=== PATIENT | male | born 1990 | race Caucasian/White ===

== ENCOUNTER 2016-06-18 10:55 | Emergency (ER) | payer SELFPAY ==
[2016-06-18 11:22] VITALS: TEMP 98.3; O2SAT 99
[2016-06-18] MEDS ORDERED: KETOROLAC TROMETHAMINE INJ 30 MG/ML VIAL IM ONE (12:23)
[2016-06-18] MEDS ORDERED: CYCLOBENZAPRINE HCL 10 MG TAB PO ONE (12:23)
--- NOTE | 2016-06-18 12:26 | ED.PDOC ---
History of Present Illness - General Chief Complaint: Headache Stated Complaint: headache Time Seen by Provider: 06/18/16 11:22 Source: patient Exam Limitations: no limitations - History of Present Illness Initial Comments: Patient complains of a headache for two days. Starts in his neck and radiates to the right side of his face. Worse with movement of the head and right arm, better with rest. No N/V/F. He has a history of migraines but says that he doesn't think this is a migraine because he would be vomiting by now. It also does not feel like his typical migraine. 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 He has had no recent falls or trauma. No paresthesias. No other symptoms. Timing/Duration: other - two days Severity: moderate Improving Factors: rest Worsening Factors: movement Associated Symptoms: denies symptoms Allergies/Adverse Reactions: Allergies NO KNOWN ALLERGY Allergy (Verified 06/18/16 11:22) Home Medications: Ambulatory Orders Insulin NPH Isophane & Reg (Hu [Novolin 70/30 (70-30) 100 Unit/ml] 1 units SC DAILY 10/27/15 Cyclobenzaprine HCl [Flexeril] 10 mg PO Q8HR PRN #20 tab 06/18/16 Insulin Regular (Human) 1 unit SC PRN 06/18/16 Review of Systems - Review of Systems Constitutional: States: no symptoms reported EENTM: States: no symptoms reported Respiratory: States: no symptoms reported Cardiology: States: no symptoms reported Gastrointestinal/Abdominal: States: no symptoms reported Genitourinary: States: no symptoms reported Musculoskeletal: States: see HPI Skin: States: no symptoms reported Neurological: States: see HPI Endocrine: States: no symptoms reported Hematologic/Lymphatic: States: no symptoms reported Past Medical History (General) - Patient Medical History Hx Stroke: No Hx Congestive Heart Failure: No Hx Diabetes: Yes Surgical History: no surgical history - Vaccination History Hx Tetanus, Diphtheria Vaccination: Yes Hx Influenza Vaccination: No Hx Pneumococcal Vaccination: No - Social History Hx Tobacco Use: No Hx Alcohol Use: No Hx Substance Use: No Hx Substance Use Treatment: No Hx Depression: No - Activities of Daily Living Hospice Agency (if applicable):: None - Female History Patient is a Female of Child Bearing Age (10 -59 yrs old): No Patient : No Family Medical History - Family History Father Living Status: Still Living Hx Family Hypertension: Yes Physical Exam - Physical Exam General Appearance: Alert Ears, Nose, Throat: normal ENT inspection Neck: full range of motion, supple, other - mildly TTP over trapezius especially on the right side Respiratory: lungs clear Cardiovascular/Chest: regular rate, rhythm Gastrointestinal/Abdominal: normal bowel sounds, non tender, soft Extremity: normal range of motion 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 Flexeril 10 mg po x one. Departure - Departure Clinical Impression: Tension type headache Disposition: Discharge to Home or Self Care Condition: Good Departure Forms: ED Discharge - Pt. Copy, Patient Portal Self Enrollment Diet: resume usual diet Activity: increase activity as tolerated Prescriptions: Cyclobenzaprine HCl [Flexeril] 10 mg PO Q8HR PRN #20 tab PRN Reason: Pain Home Medications: Ambulatory Orders Insulin NPH Isophane & Reg (Hu [Novolin 70/30 (70-30) 100 Unit/ml] 1 units SC DAILY 10/27/15 Cyclobenzaprine HCl [Flexeril] 10 mg PO Q8HR PRN #20 tab 06/18/16 Insulin Regular (Human) 1 unit SC PRN 06/18/16 Additional Instructions: Take medication as prescribed. Recommend deep neck massage and/or heating pad to the neck 2-3 times per day. May take ibuprofen or naproxen as directed on the bottle for pain as well. Follow up with your regular doctor if symptoms persist. Return to ER immediately for fever.
[2016-06-18 13:13] VITALS: BP 131/82
== END 2016-06-18 12:57 | disposition home or self-care (01) ==
LOC: ER 10:55
DX: G44.209 Tension-type headache, unspecified, not intractable (principal); E11.9 Type 2 diabetes mellitus without complications; Z79.4 Long term (current) use of insulin; Z79.899 Other long term (current) drug therapy

== ENCOUNTER 2016-07-04 02:37 | Emergency (ER) | payer SELFPAY ==
[2016-07-04] MEDS ORDERED: ACETAMINOPHEN 325 MG TAB PO ONE (03:01)
[2016-07-04] MEDS ORDERED: PENICILLIN BENZATHINE 1.2 MU 1.2 MU/2 ML SYG IM ONE (03:35)
--- NOTE | 2016-07-04 03:39 | ED.PDOC ---
History of Present Illness - General Chief Complaint: Headache Stated Complaint: headache, fever Time Seen by Provider: 07/04/16 03:00 Source: patient, RN notes reviewed, Vital Signs reviewed Exam Limitations: no limitations - History of Present Illness Initial Comments: Patient is a 26 y/o male who has been feeling ill since last night. He has a headache, sinus congestion, pressure and drainage, nausea. Headache is severe. His sinuses are painful. He has not taken any medication for it. Timing/Duration: 24 hours Severity: severe Improving Factors: nothing Worsening Factors: nothing Associated Symptoms: fever/chills, headaches, loss of appetite, malaise, nausea/ vomiting, shortness of breath, weakness Allergies/Adverse Reactions: Allergies NO KNOWN ALLERGY Allergy (Verified 06/18/16 11:22) Home Medications: Ambulatory Orders Insulin NPH Isophane & Reg (Hu [Novolin 70/30 (70-30) 100 Unit/ml] 1 units SC DAILY 10/27/15 Insulin Regular (Human) 1 unit SC PRN 06/18/16 Oseltamivir [Tamiflu] 75 mg PO BID #10 cap 07/04/16 Review of Systems - Review of Systems Constitutional: States: chills, fever EENTM: States: eye pain, tearing, nose congestion, throat pain. Denies: ear pain Respiratory: States: short of breath Cardiology: States: no symptoms reported Gastrointestinal/Abdominal: States: nausea Genitourinary: States: no symptoms reported Musculoskeletal: States: back pain, muscle pain, neck pain. Denies: joint pain Skin: States: no symptoms reported Neurological: States: headache, weakness Endocrine: States: other - DMI Hematologic/Lymphatic: States: no symptoms reported All other Systems: Reviewed and Negative Past Medical History (General) - Patient Medical History Hx Stroke: No Hx Congestive Heart Failure: No Hx Diabetes: Yes Surgical History: no surgical history - Vaccination History Hx Tetanus, Diphtheria Vaccination: Yes Hx Influenza Vaccination: No Hx Pneumococcal Vaccination: No - Social History Hx Tobacco Use: No Hx Alcohol Use: No Hx Substance Use: No Hx Substance Use Treatment: No Hx Depression: No - Female History Patient : No - Triage Comment ED Triage Comment: states onset last night when "allergies" started bothering him. Eyes red, pain to face and entire head. Family Medical History - Family History Father Living Status: Still Living Hx Family Hypertension: Yes Physical Exam - Physical Exam General Appearance: Alert, Obvious distress, Ill Appearing Eye Exam: bilateral normal Ears, Nose, Throat: hearing grossly normal, sinus pain/drainage, nasal congestion, pharyngeal erythema Neck: non-tender, full range of motion, lymphadenopathy (R), lymphadenopathy (L) Respiratory: lungs clear, normal breath sounds, no respiratory distress, no accessory muscle use Cardiovascular/Chest: regular rate, rhythm, no edema, no gallop, no murmur Gastrointestinal/Abdominal: normal bowel sounds, non tender, soft, no organomegaly Back Exam: normal inspection, no CVA tenderness, no vertebral tenderness Extremity: normal range of motion, normal inspection, no pedal edema, no calf tenderness Neurologic: alert, normal mood/affect, oriented x 3 Skin Exam: normal color Progress - Results/Orders Results/Orders: 07/04/16 02:48 Temperature 100.5 F H Pulse Rate [ 106 H Right] Respiratory 16 Rate Blood Pressure 130/75 [Left Arm] O2 Sat by Pulse 97 Oximetry 07/04/16 03:00 INFLUENZA A - NEG INFLUENZA B - POS 07/04/16 03:03 GROUP A STREP SCREEN - POS 07/04/16 03:37 FSBS [GLUCOSE, FINGER STICK] - 273 Departure - Departure Clinical Impression: Influenza B, Strep pharyngitis Time of Disposition: 03:54 Disposition: Discharge to Home or Self Care Condition: Good Departure Forms: ED Discharge - Pt. Copy, Patient Portal Self Enrollment Instructions: Strep Throat, DI for Strep Throat, Influenza, Influenza Vaccine Reduces and Hospitalization From Complications of I, DI for Influenza -- Adult Diet: diabetic diet Prescriptions: Oseltamivir [Tamiflu] 75 mg PO BID #10 cap Home Medications: Ambulatory Orders Insulin NPH Isophane & Reg (Hu [Novolin 70/30 (70-30) 100 Unit/ml] 1 units SC DAILY 10/27/15 Insulin Regular (Human) 1 unit SC PRN 06/18/16 Oseltamivir [Tamiflu] 75 mg PO BID #10 cap 07/04/16 Additional Instructions: Stay well-hydrated. Alternate Tylenol 650 mg with Ibuprofen 400 mg every 3 hours for fever/pain. Follow up in ED if symptoms worsen.
[2016-07-04 04:06] VITALS: BP 128/79; TEMP 100.3; O2SAT 96
== END 2016-07-04 04:06 | disposition home or self-care (01) ==
LOC: ER 02:37
DX: J10.1 Influenza due to other identified influenza virus with other respiratory manifestations (principal); J02.0 Streptococcal pharyngitis; E11.9 Type 2 diabetes mellitus without complications; Z79.4 Long term (current) use of insulin
CPT/HCPCS: 82948; 87502; 87651; J0561